=== PATIENT | female | born 1940 | race Caucasian/White ===

== ENCOUNTER → 2020-05-17 | Outpatient (CLI) | payer MEDICARE ==
[~2020-05-17] MED LIST: AMLO10TA5 PO; AZIT-12 PO; CALC600T57 PO; LOSA50TA88 PO; ONDA-83 PO; PRED20TA PO; PROAAER10 INH; PROBCAP14 PO
--- NOTE | 2020-05-17 15:38 | REP ---
REASON: Coronavirus. There are no priors. The interstitial markings are increased, but more so on the right than left. There is blunting of the right CP angle with right lower lobe opacities. The heart is not enlarged. The osseous structures are within normal limits. IMPRESSION: Findings suggesting fibrosis and/or asymmetric interstitial edema, right greater than left, with a small right pleural effusion and some patchy right basilar opacities. Since there are no priors for comparison, followup is suggested. Electronically Signed by Addy Neff DO 05/17/2020 04:56 P
== END ==
LOC: M WUC 12:43
PROVIDERS: ATTEND Physician Assistant
DX: R91.8 Other nonspecific abnormal finding of lung field (principal); J90 Pleural effusion, not elsewhere classified; U07.1 COVID-19; R05 Cough; R19.7 Diarrhea, unspecified